=== PATIENT | male | born 1950 | race Caucasian/White ===

== ENCOUNTER → 2020-03-11 | Outpatient (CLI) | payer MEDICARE ==
[~2020-03-11] MED LIST: AGM875T PO; CLIN300C3 PO; METH4TAB PO; TRM50T PO; WARF7.5T; WRF10T PO
--- NOTE | 2020-03-11 12:46 | Diagnostic Imaging Report ---
PROCEDURE: US left lower extremity venous. TECHNIQUE: Multiple real-time grayscale images were obtained over the left lower extremity in various projections. Additional duplex Doppler and color Doppler images were also obtained. INDICATION: Left leg pain. FINDINGS: There is nonocclusive mural thrombus scattered throughout the entire left lower extremity venous system. Again, no occlusive thrombi are present. Calf compression does show augmentation of flow at the popliteal level. Calf veins do appear patent. Saphenous vein is patent. IMPRESSION: Scattered nonocclusive mural thrombus noted throughout the deep venous system of the left lower extremity. Patient does give history of chronic thrombosis of left lower extremity. These findings may very well be chronic. Clinical correlation for change in symptoms. Dictated by: Dictated on workstation # [id number]
--- NOTE | 2020-03-11 12:49 | Diagnostic Imaging Report ---
INDICATION: Left leg pain. FINDINGS: Color Doppler imaging shows normal blood flow throughout the left lower extremity arterial system from the common femoral level distally to the dorsalis pedis and posterior tibial arteries. There are triphasic waveforms throughout. Peak velocities are common femoral 122 cm/s, profundus femoral 91, superficial femoral 110, popliteal 75, dorsalis pedis 79, and posterior tibial 84. IMPRESSION: 1. No hemodynamic changes are demonstrated throughout the entire left lower extremity arterial system. A few mild scattered plaques are noted. Dictated by: Dictated on workstation # [id number]
== END ==
LOC: RAD 11:27
PROVIDERS: ATTEND Nurse Practitioner Family
DX: I82.4Z2 Acute embolism and thrombosis of unspecified deep veins of left distal lower extremity (principal)
CPT/HCPCS: 93926

== ENCOUNTER → 2020-03-12 | Outpatient (CLI) | payer MEDICARE | LOC: WOUNDCARE 08:18 | PROVIDERS: ATTEND Surgery | DX: I87.332 Chronic venous hypertension (idiopathic) with ulcer and inflammation of left lower extremity (principal); L97.222 Non-pressure chronic ulcer of left calf with fat layer exposed; D68.59 Other primary thrombophilia; T65.222A Toxic effect of tobacco cigarettes, intentional self-harm, initial encounter; F17.218 Nicotine dependence, cigarettes, with other nicotine-induced disorders | CPT/HCPCS: 29581; A6253; G0463 ==

== ENCOUNTER → 2020-03-16 | Outpatient (CLI) | payer MEDICARE | LOC: WOUNDCARE 12:28 | PROVIDERS: ATTEND Surgery | DX: I87.332 Chronic venous hypertension (idiopathic) with ulcer and inflammation of left lower extremity (principal); L97.222 Non-pressure chronic ulcer of left calf with fat layer exposed; D68.59 Other primary thrombophilia; T65.222A Toxic effect of tobacco cigarettes, intentional self-harm, initial encounter; I96 Gangrene, not elsewhere classified; F17.218 Nicotine dependence, cigarettes, with other nicotine-induced disorders | CPT/HCPCS: 29581; A6253; G0463 ==

== ENCOUNTER → 2020-03-17 | Outpatient (CLI) | payer MEDICARE | LOC: WOUNDCARE 10:54 | PROVIDERS: ATTEND Surgery | DX: I87.312 Chronic venous hypertension (idiopathic) with ulcer of left lower extremity (principal) | CPT/HCPCS: 99212 ==

== ENCOUNTER → 2020-03-25 | Outpatient (CLI) | payer MEDICARE | LOC: WOUNDCARE 08:15 | PROVIDERS: ATTEND Surgery | DX: I87.332 Chronic venous hypertension (idiopathic) with ulcer and inflammation of left lower extremity (principal); L97.222 Non-pressure chronic ulcer of left calf with fat layer exposed; T65.222A Toxic effect of tobacco cigarettes, intentional self-harm, initial encounter; I96 Gangrene, not elsewhere classified; F17.218 Nicotine dependence, cigarettes, with other nicotine-induced disorders | CPT/HCPCS: 99213 ==

== ENCOUNTER → 2022-01-05 | Outpatient (CLI) | payer MEDICARE ==
--- NOTE | 2022-01-05 10:21 | Diagnostic Imaging Report ---
INDICATION: Shortness of breath. TIME OF EXAM: 9:26 AM No prior studies are available for comparison. FINDINGS: Heart size is normal. Lungs are hyperinflated consistent with COPD. No infiltrates are seen. There is no effusion or pneumothorax. IMPRESSION: COPD. No acute cardiopulmonary process is detected. Dictated by: Dictated on workstation # [id number]
--- NOTE | 2022-01-05 10:33 | Diagnostic Imaging Report ---
INDICATION: R19.03 and R17.210 PROCEDURE: Ultrasound abdomen complete. TECHNIQUE: Multiple real-time grayscale images were obtained of the abdomen in various projections. Liver is normal in size 16 cm. Portal vein is patent and shows normal direction of flow. No discrete liver mass is identified. The gallbladder is without stones or sludge. No wall thickening or biliary duct dilatation is seen. The pancreas unremarkable. Spleen is normal size 11.5 cm. Visualized aorta is nonaneurysmal. IVC is patent. There is significant hydronephrosis involving bilateral kidneys. No calculi are seen. There is no ascites. IMPRESSION: 1. Severe bilateral hydronephrosis. No other significant abnormalities detected. Dictated by: Dictated on workstation # [id number]
== END ==
LOC: RAD 08:37
PROVIDERS: ATTEND Nurse Practitioner Family
DX: N13.30 Unspecified hydronephrosis (principal); J44.9 Chronic obstructive pulmonary disease, unspecified; F17.210 Nicotine dependence, cigarettes, uncomplicated
CPT/HCPCS: 71046; 76700

== ENCOUNTER → 2022-01-06 | Day surgery (SDC) | payer MEDICARE ==
[~2022-01-06] VITALS: Ht 190.5 cm; Wt 93.0 kg
[2022-01-06 17:15] VITALS: BP 138/80
== END | disposition home or self-care (01) ==
LOC: 4THo 16:06
PROVIDERS: ATTEND Nurse Practitioner Family
DX: N32.0 Bladder-neck obstruction (principal)

== ENCOUNTER → 2022-01-06 | Outpatient (CLI) | payer MEDICARE ==
--- NOTE | 2022-01-06 13:31 | Diagnostic Imaging Report ---
PROCEDURE: CT chest, abdomen, and pelvis without contrast. TECHNIQUE: Multiple contiguous axial images were obtained through the chest, abdomen, and pelvis without the use of intravenous contrast. Auto Exposure Controls were utilized during the CT exam to meet ALARA standards for radiation dose reduction. INDICATION: Abdominal mass and urinary urgency. CT CHEST: There is moderately severe centrilobular emphysema throughout the lungs with an upper lobe predominance. There is no evidence of lung mass or focal infiltrate. No pleural or pericardial fluid is identified. There are occasional mildly prominent mediastinal lymph nodes without pathologically enlarged adenopathy. Coronary artery calcifications are noted. IMPRESSION: 1. Moderate centrilobular emphysema without acute abnormality seen in the thorax. CT ABDOMEN PELVIS: Unenhanced images of the liver and spleen reveal no focal abnormality. There is no evidence of gallbladder or pancreatic lesion. Adrenal glands are also unremarkable in appearance. There are nodular structures in the upper retroperitoneum which are difficult to completely assess without contrast but may represent enlarged lymph nodes. Differential considerations include varices. There is moderate to severe bilateral hydronephrosis and hydroureter. There is fluid distention of the small bowel. No definite bowel obstruction is identified. Urinary bladder is markedly distended and extends into the right mid abdomen. There is prostatic enlargement with median lobe of the prostate gland extending into the bladder base. There is apparent femoral to femoral bypass graft which is not fully evaluated on the noncontrasted study. There is mild aortoiliac atherosclerotic calcification. Inferior vena caval filter is noted. IMPRESSION: 1. There is marked urinary bladder distention with bilateral hydronephrosis and hydroureter. This may be on the basis of bladder outlet obstruction given the enlarged protruding nature of the prostate gland at the bladder base. 2. There is possible mild upper abdominal retroperitoneal adenopathy however given lack of additional enlarged lymph nodes, these could represent non-opacified varices. Follow-up study with contrast may be of use. Dictated by: Dictated on workstation # [id number]
== END ==
LOC: RAD 13:00
PROVIDERS: ATTEND Nurse Practitioner Family
DX: R19.03 Right lower quadrant abdominal swelling, mass and lump (principal); J43.9 Emphysema, unspecified; N19 Unspecified kidney failure; Z72.0 Tobacco use
CPT/HCPCS: 71250; 74176

== ENCOUNTER → 2022-05-10 | Outpatient (CLI) | payer MEDICARE ==
--- NOTE | 2022-05-10 11:46 | Diagnostic Imaging Report ---
PROCEDURE: US Renal Bilateral. TECHNIQUE: Multiple real-time grayscale images were obtained over the kidneys in various projections bilaterally. INDICATION: BPH with urinary retention and hydronephrosis. Comparison with CT 01/06/2022. FINDINGS: Right kidney measures 12 x 6.2 x 6 cm. Left kidney measures 12.3 x 5.7 x 5.3 cm. There is moderate severe hydronephrosis bilaterally with thinning of renal cortex. No calculi are seen. Ureters are dilated. Prostate measures 5 x 4 x 2.8 cm. There is a large nodule in the median lobe extending into the bladder. Bilateral ureteral jets are seen though weak. IMPRESSION: 1. There is moderate severe hydronephrosis without significant change in appearance from previous CT scan. 2. Marked enlargement of the prostate with large median lobe extending into the bladder. This also appears unchanged from previous CT scan. Dictated by: Dictated on workstation # [id number]
== END ==
LOC: RAD 08:38
PROVIDERS: ATTEND Internal Medicine Nephrology
DX: N17.9 Acute kidney failure, unspecified (principal); N40.0 Benign prostatic hyperplasia without lower urinary tract symptoms; N13.30 Unspecified hydronephrosis
CPT/HCPCS: 76770

== ENCOUNTER → 2022-12-28 | Outpatient (CLI) | payer MEDICARE ==
--- NOTE | 2022-12-28 16:05 | Diagnostic Imaging Report ---
PROCEDURE: US Renal Bilateral. TECHNIQUE: Multiple real-time grayscale images were obtained over the kidneys in various projections bilaterally. INDICATION: Benign prosthetic hyperplasia. Right kidney measures 11.2 x 6.4 x 6.6 cm and the left kidney measures 11.5 x 5.0 x 5.0 cm. There appears to be significant bilateral hydronephrosis. No calculi are seen. Cortical thickness and echogenicity is normal. Bladder volume is 248 mL. Post void bladder volume is 150 mL. Bilateral ureteral jets are visualized. Prostate gland measures 3.9 x 3.3 x 3.1 cm. IMPRESSION: 1. Significant bilateral hydronephrosis. 2. Large post void residual bladder volume. Dictated by: Dictated on workstation # [id number]
== END ==
LOC: RAD 12:01
PROVIDERS: ATTEND Nurse Practitioner Family
DX: N13.39 Other hydronephrosis (principal); N32.89 Other specified disorders of bladder; N40.1 Benign prostatic hyperplasia with lower urinary tract symptoms
CPT/HCPCS: 76770

== ENCOUNTER 2023-04-28 18:03 | Observation (INO) | payer MEDICARE ==
[~2023-04-28] VITALS: Ht 193 cm; Wt 86.0 kg
[2023-04-28] MEDS ORDERED: Tetanus/Diphtheria/Pertussis (Acell) ADULT Vaccine 0.5 ML IM ONE (18:30)
[2023-04-28 18:34] LABS: BASOPHILS % (AUTO) 0 % (0-10); EOSINOPHILS # (AUTO) 0.1 10^3/uL (0.0-0.3); EOSINOPHILS % (AUTO) 2 % (0-10); HEMATOCRIT 34 % (40-54); HEMOGLOBIN 12.3 g/dL (13.3-17.7); LYMPHOCYTES # (AUTO) 0.6 10^3/uL (1.0-4.0); LYMPHOCYTES % (AUTO) 12 % (12-44); MEAN CORPUSCULAR HEMOGLOBIN 39 pg (25-34); MEAN CORPUSCULAR HGB CONC 37 g/dL (32-36); MEAN CORPUSCULAR VOLUME 105 fL (80-99); MEAN PLATELET VOLUME 9.7 fL (9.0-12.2); MONOCYTES # (AUTO) 0.2 10^3/uL (0.0-1.0); MONOCYTES % (AUTO) 5 % (0-12); NEUTROPHILS # (AUTO) 3.7 10^3/uL (1.8-7.8); NEUTROPHILS % (AUTO) 80 % (42-75); PLATELET COUNT 148 10^3/uL (130-400); WHITE BLOOD COUNT 4.6 10^3/uL (4.3-11.0)
--- NOTE | 2023-04-28 18:36 | ED General ---
General Chief Complaint: Trauma-Non Activation Stated Complaint: DISORIENTED/FELL/DIZZY Source of Information: Patient (LIMITED HISTORIAN), Other (SISTER GIVES SOME INFORMATION) History of Present Illness Date Seen by Provider: Apr 28, 2023 Time Seen by Provider: 18:17 Initial Comments PT ARRIVES VIA POV FROM HOME, NEEDS WHEELCHAIR ON ARRIVAL PT STATES AROUND [id number] TODAY, HE HAD BEEN TO THE STORE, AND GOT HOME AND WAS GETTING OUT OF HIS TRUCK AND FELT LIGHTHEADED AND FELL ONTO CONCRETE, LANDING ON LEFT FOREARM--HAS BRUISING AND SKIN TEAR TO LEFT FOREARM AND ELBOW AREA HE DENIES HITTING HIS HEAD OR HAVING LOSS OF CONSCIOUSNESS PT'S NEIGHBOR WITNESSED IT AND HELPED HIM UP AND CALLED PT'S SISTER ( PT LIVES ALONE) PT REPORTEDLY WAS DISORIENTED AND OFF BALANCE--THOSE SYMPTOMS ARE BETTER, BUT NOT BACK TO NORMAL -DENIES CHEST PAIN -DENIES PALPITATIONS -DENIES SHORTNESS OF BREATH -DENIES HEADACHE -DENIES VISION CHANGES -DENIES PARESTHESIAS OR MOTOR DEFICITS -DENIES NAUSEA/VOMITING PT STATES HE ATE BREAKFAST AND LUNCH, BUT HAS NOT HAD DINNER YET PT STATES HE HAD SURGERY IN 2000 ON HIS LEFT LEG FOR BLOOD CLOTS, HE IS NOT CURRENTLY TAKING ANY ASPIRIN OR BLOOD THINNERS PT STATES THE ONLY MEDICATION HE TAKES IS "FOR MY KIDNEYS OR BLADDER" --HE DOES NOT KNOW THE NAME OF MEDICATION PT DRINKS "A FEW SHOTS" OF HARD LIQUOR EVERY DAY, INCLUDING TODAY HE SMOKES 1 1/2-2 PPD, DENIES DRUG USE LAST TETANUS UNKNOWN PCP: DR. HAMMOND Allergies and Home Medications Allergies Coded Allergies: No Known Drug Allergies (Unverified , 12/29/09) Patient Home Medication List Amoxicillin/Clavulanate K (Augmentin 875-125 Tablet) 1 Tab Tablet, 1 TAB PO BID Prescribed by: ELEANOR GUIDRY on 12/13/10 1600 Clindamycin Hcl (Cleocin Hcl) 300 Mg Capsule, 1 EACH PO QID Prescribed by: ELEANOR GUIDRY on 12/29/09 141 Methylprednisolone (Medrol Dose Pack) 4 Mg/Dose-Pack Tab.ds.pk, 0 PO UD Prescribed by: ELEANOR GUIDRY on 12/29/09 141 Tramadol Hcl (Ultram) 50 Mg Tab, 50 MG PO Q4-6HOURS PRN Prescribed by: ELEANOR GUIDRY on 12/13/10 1600 Warfarin Sod (Coumadin) 7.5 Mg Tablet, DAILY, (Reported) Entered as Reported by: KEKE VALDES on 12/29/09 1100 Warfarin Sod (Coumadin 10 Mg) 10 Mg Tab, 10 MG PO QOD Prescribed by: ELEANOR GUIDRY on 12/29/09 1415 Review of Systems Review of Systems Constitutional: no symptoms reported EENTM: no symptoms reported Respiratory: no symptoms reported Cardiovascular: no symptoms reported Gastrointestinal: no symptoms reported Genitourinary: no symptoms reported Musculoskeletal: see HPI Skin: see HPI Psychiatric/Neurological: See HPI Hematologic/Lymphatic: See HPI Immunological/Allergic: no symptoms reported Physical Exam Vital Signs Vital Signs - First Documented Capillary Refill : Height, Weight, BMI Height: '" Weight: lbs. oz. kg; BMI Method:Stated Progress/Results/Core Measures Suspected Sepsis SIRS Temperature: Pulse: Respiratory Rate: Laboratory Tests 04/28/23 18:27: White Blood Count 4.6 Blood Pressure / Mean: Laboratory Tests 04/28/23 18:27: Creatinine 2.69H, INR Comment 0.9, Platelet Count 148, Total Bilirubin 0.9 Results/Orders Lab Results Laboratory Tests Test 04/28/23 18:27 04/28/23 19:08 04/28/23 19:11 Range/Units White Blood Count 4.6 4.3-11.0 10^3/uL Red Blood Count 3.19 L 4.30-5.52 10^6/uL Hemoglobin 12.3 L 13.3-17.7 g/dL Hematocrit 34 L 40-54 % Mean Corpuscular Volume 105 H 80-99 fL Mean Corpuscular Hemoglobin 39 H 25-34 pg Mean Corpuscular Hemoglobin Concent 37 H 32-36 g/dL Red Cell Distribution Width 13.0 10.0-14.5 % Platelet Count 148 130-400 10^3/uL Mean Platelet Volume 9.7 9.0-12.2 fL Immature Granulocyte % (Auto) 1 % Neutrophils (%) (Auto) 80 H 42-75 % Lymphocytes (%) (Auto) 12 12-44 % Monocytes (%) (Auto) 5 0-12 % Eosinophils (%) (Auto) 2 0-10 % Basophils (%) (Auto) 0 0-10 % Neutrophils # (Auto) 3.7 1.8-7.8 10^3/uL Lymphocytes # (Auto) 0.6 L 1.0-4.0 10^3/uL Monocytes # (Auto) 0.2 0.0-1.0 10^3/uL Eosinophils # (Auto) 0.1 0.0-0.3 10^3/uL Basophils # (Auto) 0.0 0.0-0.1 10^3/uL Immature Granulocyte # (Auto) 0.0 0.0-0.1 10^3/uL Prothrombin Time 12.5 12.2-14.7 SEC INR Comment 0.9 0.8-1.4 Activated Partial Thromboplast Time 26 24-35 SEC Sodium Level 131 L 135-145 MMOL/L Potassium Level 4.2 3.6-5.0 MMOL/L Chloride Level 105 98-107 MMOL/L Carbon Dioxide Level 13 L 21-32 MMOL/L Anion Gap 13 5-14 MMOL/L Blood Urea Nitrogen 34 H 7-18 MG/DL Creatinine 2.69 H 0.60-1.30 MG/DL Estimat Glomerular Filtration Rate 24 BUN/Creatinine Ratio 13 Glucose Level 100 70-105 MG/DL Calcium Level 8.8 8.5-10.1 MG/DL Corrected Calcium 8.7 8.5-10.1 MG/DL Magnesium Level 2.0 1.6-2.4 MG/DL Total Bilirubin 0.9 0.1-1.0 MG/DL Aspartate Amino Transf (AST/SGOT) 46 H 5-34 U/L Alanine Aminotransferase (ALT/SGPT) 46 0-55 U/L Alkaline Phosphatase 53 40-136 U/L Total Creatine Kinase 157 30-200 U/L Creatine Kinase MB 3.6 <6.6 NG/ML Myoglobin 151.2 H 10.0-92.0 NG/ML Troponin I < 0.028 <0.028 NG/ML B-Type Natriuretic Peptide 77.4 <100.0 PG/ML Total Protein 7.5 6.4-8.2 GM/DL Albumin 4.1 3.2-4.5 GM/DL Amylase Level 84 25-125 U/L Lipase 64 8-78 U/L Serum Alcohol 252 H <10 MG/DL Glucometer 104 70-110 MG/DL My Orders Orders - ELEANOR GUIDRY DO Accucheck Stat ONCE (04/28/23 18:24) Ed Iv/Invasive Line Start (04/28/23 18:24) Ekg Tracing (04/28/23 18:) Monitor-Rhythm Ecg Trace Only (04/28/23 18:) Ct Head Wo-R/O Stroke (04/28/23 18:24) Chest 1 View, Ap/Pa Only (04/28/23 18:24) Forearm, Left, 2 Views (04/28/23 18:24) Elbow, Left, 3 Views (04/28/23 18:24) Pelvis 1 To 2 Views (04/28/23 18:24) Alcohol (04/28/23 18:) Cbc And Automated Diff (04/28/23 18:) Comprehensive Metabolic Panel (04/28/23 18) Creatine Kinase (04/28/23 18:) Creatine Kinase Mb (04/28/23 18:) Drug Screen Stat (Urine) (04/28/23 18:) Magnesium (04/28/23 18:24) Protime With Inr (04/28/23 18:24) Partial Thromboplastin Time (04/28/23 18:24) Thyroid Analyzer (04/28/23 18:24) Ua Culture If Indicated (04/28/23 18:24) Myoglobin Serum (04/28/23 18:24) Troponin I Fabián (04/28/23 18:24) Covid 19 Inhouse Test (04/28/23 18:24) Dipht/Pertuss(Acell)/Tet Adult (Dipht/Pe (04/28/23 18:30) Influenza A And B By Pcr (04/28/23 18:24) Amylase (04/28/23 18:24) Bnp Trigg (04/28/23 18:24) Lipase (04/28/23 18:24) Ed Iv/Invasive Line Start (04/28/23 19:11) Lactated Ringers 1,000 Ml (Lactated Ring (04/28/23 19:15) Vital Signs/I&O 04/28/23 04/28/23 18:30 18:30 Temp 36.1 36.1 Pulse 85 85 Resp 16 16 B/P (MAP) 124/74 (91) 124/74 (91) Pulse Ox 97 97 Capillary Refill : Departure Communication (Admissions) 1855--SPOKE WITH DR. AMADOR, HOSPITALIST, ACCEPTS PT FOR ADMIT Impression Primary Impression: Alcohol intoxication in active alcoholic Additional Impressions: Altered mental status associated with intoxication Fall Renal insufficiency Disposition: ADMITTED INPATIENT Condition: Stable Admissions Decision to Admit/Date: Apr 28, 2023 Time/Decision to Admit Time: 18:55 Departure-Patient Inst. Referrals: AMERICA HAMMOND MD (PCP/Family) Primary Care Physician ELEANOR GUIDRY DO Apr 28, 2023 18:36
[2023-04-28 18:49] LABS: ALBUMIN 4.1 GM/DL (3.2-4.5); CHLORIDE 105 MMOL/L (98-107); POTASSIUM 4.2 MMOL/L (3.6-5.0); SODIUM 131 MMOL/L (135-145)
[2023-04-28 18:50] LABS: AMYLASE 84 U/L (25-125); CALCIUM 8.8 MG/DL (8.5-10.1); INR 0.9 (0.8-1.4); PROTHROMBIN TIME PATIENT 12.5 SEC (12.2-14.7)
[2023-04-28 18:51] LABS: GLUCOSE 100 MG/DL (70-105); TOTAL PROTEIN 7.5 GM/DL (6.4-8.2)
[2023-04-28 18:52] LABS: CARBON DIOXIDE 13 MMOL/L (21-32)
[2023-04-28 18:53] LABS: BILIRUBIN,TOTAL 0.9 MG/DL (0.1-1.0)
[2023-04-28 18:55] LABS: ALKALINE PHOSPHATASE 53 U/L (40-136); CREATININE SERUM 2.69 MG/DL (0.60-1.30); GFR ESTIMATED 24
[2023-04-28 18:56] LABS: BUN/CREATININE RATIO 13
[2023-04-28 18:58] LABS: ALANINE AMINOTRANSFERASE 46 U/L (0-55)
[2023-04-28 18:59] LABS: CREATINE KINASE 157 U/L (30-200); LIPASE 64 U/L (8-78)
--- NOTE | 2023-04-28 19:03 | Diagnostic Imaging Report ---
PROCEDURE: CT head wo r/o stroke. TECHNIQUE: Multiple contiguous axial images were obtained through the brain without the use of intravenous contrast. Auto Exposure Controls were utilized during the CT exam to meet ALARA standards for radiation dose reduction. INDICATION: Weakness and dizziness The ventricles are normal in size, shape and position. There are no masses or hemorrhages. There are no extra-axial fluid collections. IMPRESSION: Negative CT head Dictated by: Dictated on workstation # [id number]
[2023-04-28 19:06] LABS: CREATINE KINASE MB 3.6 NG/ML (<6.6)
--- NOTE | 2023-04-28 19:09 | Diagnostic Imaging Report ---
INDICATION: Weakness and dizziness Portable chest 6:39 PM Heart size and pulmonary vascularity are normal. Lungs are clear. There are no effusions or pneumothoraces. IMPRESSION: Negative chest. Dictated by: Dictated on workstation # [id number]
--- NOTE | 2023-04-28 19:10 | Diagnostic Imaging Report ---
INDICATION: Pelvic injury, pain AP view pelvis shows no fracture or dislocation. Hips are intact. IMPRESSION: Negative pelvis. Dictated by: Dictated on workstation # [id number]
--- NOTE | 2023-04-28 19:10 | Diagnostic Imaging Report ---
INDICATION: Left elbow pain 3 views of left elbow show no fracture, dislocation or pathologic effusion. IMPRESSION: Negative left elbow. Dictated by: Dictated on workstation # [id number]
--- NOTE | 2023-04-28 19:10 | Diagnostic Imaging Report ---
INDICATION: Left forearm injury AP and lateral views of left forearm show no fracture or dislocation. IMPRESSION: Negative left forearm. Dictated by: Dictated on workstation # [id number]
[2023-04-28] MEDS ORDERED: LACTATED RINGERS 1,000 ML 1,000 ML IV ONE ×2 (19:15→20:30)
[2023-04-28 19:19] LABS: TSH (THYROID ANALYZER) 1.81 UIU/ML (0.35-4.94)
[2023-04-28 20:22] LABS: BACTERIA,URINE LARGE /HPF; BILIRUBIN,URINE NEGATIVE (NEGATIVE); CLARITY,URINE CLEAR; COLOR,URINE YELLOW; GLUCOSE, URINE (UA) NEGATIVE (NEGATIVE); KETONES,URINE NEGATIVE (NEGATIVE); LEUKOCYTE ESTERASE ,URINE 3+ (NEGATIVE); NITRITE,URINE POSITIVE (NEGATIVE); PROTEIN,URINE NEGATIVE (NEGATIVE); RBC,URINE 0-2 /HPF; WBC,URINE 25-50 /HPF
[2023-04-28 20:23] LABS: AMORPHOUS SEDIMENT,UR LARGE AMOR PHOSPHATE /LPF
[2023-04-28] MEDS ORDERED: CEFEPIME INJECTION 1,000 MG in NS (IVPB) 50 ML 50 ML IV ONE (20:30)
[2023-04-28 20:32] LABS: AMPHETAMINE SCREEN, URINE NEGATIVE (NEGATIVE); BARBITURATE SCREEN URINE NEGATIVE (NEGATIVE); CANNABINOID SCREEN, URINE NEGATIVE (NEGATIVE); COCAINE SCREEN URINE NEGATIVE (NEGATIVE); METHADONE STAT NEGATIVE (NEGATIVE); OPIATE SCREEN URINE NEGATIVE (NEGATIVE); OXYCODONE STAT NEGATIVE (NEGATIVE); PROPOXYPHENE STAT NEGATIVE (NEGATIVE); TRICYCLIC ANTIDEPRESSANTS SCRE NEGATIVE (NEGATIVE)
--- NOTE | 2023-04-28 21:26 | Tele-ICU Consult ---
History of Present Illness History of Present Illness Date Seen by Provider: Apr 28, 2023 Time Seen by Provider: 21:20 History of Present Illness eICU Critical Care Consult 72 yo M felt lightheaded, fell, no LOC, did not hit head, EtOH level 252, troponin normal, Cr 2.69, BUN 34, No old values Hb 12.3, but MCV 105 No CP, SOB, N, V, D Hx of blood clots but not on OAC X rays of chest, elbow, forearm normal CT pelvis, head showed no acute process Allergies and Home Medications Allergies Coded Allergies: No Known Drug Allergies (Unverified , 12/29/09) Home Medications Amoxicillin/Clavulanate K 1 Tab Tablet, 1 TAB PO BID FOR INFECTION Prescribed by: ELEANOR GUIDRY on 12/13/10 1600 Clindamycin Hcl 300 Mg Capsule, 1 EACH PO QID FOR INFECTION Prescribed by: ELEANOR GUIDRY on 12/29/09 141 Methylprednisolone 4 Mg/Dose-Pack Tab.ds.pk, 0 PO UD INFLAMMATION Prescribed by: ELEANOR GUIDRY on 12/29/09 141 Tramadol Hcl 50 Mg Tab, 50 MG PO Q4-6HOURS PRN FOR PAIN Prescribed by: ELEANOR GUIDRY on 12/13/10 1600 Warfarin Sod 7.5 Mg Tablet, DAILY, (Reported) Warfarin Sod 10 Mg Tab, 10 MG PO QOD Prescribed by: ELEANOR GUIDRY on 12/29/09 1415 Past Medical/Social/Family Hx Patient Social History Tobacco Use?: Yes Tobacco type used: Cigarettes Smoking Status: Current Everyday Smoker Substance use?: No Alcohol Use?: Yes Alcohol type: Hard Liquor Alcohol Frequency: Daily Pt stated abuse/neglect: No Current Status Advance Directives: No Primary Language: Uzbek Preferred Spoken Language: Uzbek Review of Systems Constitutional: see HPI EENTM: see HPI Respiratory: see HPI Cardiovascular: see HPI Gastrointestinal: see HPI Genitourinary: see HPI Musculoskeletal: see HPI Skin: see HPI Psychiatric/Neurological: See HPI Focused Exam Height, Weight, BMI Height: '" Weight: lbs. oz. kg; 23.00 BMI Method:Stated Exam Exam Patient acknowledged, consented, and participated in this virtual visit which was conducted using real time audio/video Vital Signs Date Time Temp Pulse Resp B/P (MAP) Pulse Ox O2 Delivery O2 Flow Rate FiO2 04/28/23 18:30 36.1 85 16 124/74 (91) 97 04/28/23 18:30 36.1 85 16 124/74 (91) 97 Height & Weight Height: '" Weight: lbs. oz. kg; 23.00 BMI Method:Stated General Appearance: No Apparent Distress Capillary Refill: Less Than 3 Seconds Results Lab Laboratory Tests 04/28/23 18:27 Assessment/Plan Assessment/Plan EtOH intoxication, dehydration, probable chronic EtOH use, elevated Cr/BUN SAVANNAH vs CKD will hydrate, Spoke with university lecturer: Critically Ill Patient Time spent with patient (mins): 20 ITZEL MCBRIDE MD Apr 28, 2023 21:25
[2023-04-28] MEDS ORDERED: CALCIUM CARBONATE 500 MG CHEW TABLET PO PRN (21:45)
[2023-04-28] MEDS ORDERED: ENOXAPARIN 40 MG/0.4 ML SYRINGE SC SCH (21:45)
[2023-04-28] MEDS ORDERED: MILK OF MAGNESIA 400 MG/5 ML 30 ML UDC PO PRN (21:45)
[2023-04-28] MEDS ORDERED: oxyCODONE IMMEDIATE RELEASE 5 MG TABLET PO PRN (21:45)
[2023-04-28] MEDS ORDERED: DexMEDEtomidine 1,000mcg/250ml 250 ML IV SCH (21:45)
[2023-04-28] MEDS ORDERED: 1/2 NS IV SOLUTION 1000 ML 1,000 ML IV PRN (21:45)
[2023-04-28] MEDS ORDERED: LORazepam 1 MG TABLET PO PRN (21:45)
[2023-04-28] MEDS ORDERED: D5 1/2 NS 1,000 ML IV 1,000 ML IV PRN (21:45)
[2023-04-28] MEDS ORDERED: BISACODYL 10 MG SUPPOSITORY PR PRN (21:45)
[2023-04-28] MEDS ORDERED: LACTULOSE SYRUP 10GM/15ML 30ML UDC PO PRN (21:45)
[2023-04-28] MEDS ORDERED: HYDROmorphone INJECTION 2 MG/ML VIAL IV PRN (21:45)
[2023-04-28] MEDS ORDERED: SENNA W/DOCUSATE TABLET PO PRN (21:45)
[2023-04-28] MEDS ORDERED: diphenhydrAMINE 25 MG TABLET PO PRN (21:45)
[2023-04-28] MEDS ORDERED: ACETAMINOPHEN 325 MG TABLET PO PRN (21:45)
[2023-04-28] MEDS ORDERED: ONDANSETRON INJECTION 4 MG/2 ML (SDV) IV PRN ×2 (21:45)
[2023-04-28] MEDS ORDERED: ANTACID SUSPENSION 30 ML UDC PO PRN ×2 (21:45)
[2023-04-28] MEDS ORDERED: ONDANSETRON 4 MG ORAL DISSOLVE TABLET PO PRN (21:45)
[2023-04-28] MEDS ORDERED: ONDANSETRON 4 MG ORAL DISSOLVE TABLET SL PRN (21:45)
[2023-04-28] MEDS ORDERED: NS IV 500 ML 500 ML IV PRN (21:45)
[2023-04-28] MEDS ORDERED: diphenhydrAMINE INJ 50 MG/ML VIAL IVP PRN (21:45)
[2023-04-28] MEDS ORDERED: MELATONIN 3 MG TABLET PO PRN (21:45)
[2023-04-28 21:57] VITALS: BP 124/74
[2023-04-28] MEDS ORDERED: RT-ALBUTEROL SULF 2.5 MG/3 ML PRE-MIX VIAL INH PRN (22:15)
[2023-04-29] MEDS ORDERED: CEFEPIME INJECTION 1,000 MG in NS (IVPB) 50 ML 50 ML IV SCH (04:30)
[2023-04-29 05:23] LABS: BASOPHILS % (AUTO) 0 % (0-10); EOSINOPHILS % (AUTO) 1 % (0-10); HEMATOCRIT 35 % (40-54); HEMOGLOBIN 12.5 g/dL (13.3-17.7); LYMPHOCYTES # (AUTO) 0.4 10^3/uL (1.0-4.0); LYMPHOCYTES % (AUTO) 8 % (12-44); MEAN CORPUSCULAR HEMOGLOBIN 38 pg (25-34); MEAN CORPUSCULAR HGB CONC 35 g/dL (32-36); MEAN CORPUSCULAR VOLUME 106 fL (80-99); MEAN PLATELET VOLUME 10.1 fL (9.0-12.2); MONOCYTES # (AUTO) 0.3 10^3/uL (0.0-1.0); MONOCYTES % (AUTO) 6 % (0-12); NEUTROPHILS # (AUTO) 3.9 10^3/uL (1.8-7.8); NEUTROPHILS % (AUTO) 85 % (42-75); PLATELET COUNT 136 10^3/uL (130-400); WHITE BLOOD COUNT 4.6 10^3/uL (4.3-11.0)
[2023-04-29 05:37] LABS: ALBUMIN 3.8 GM/DL (3.2-4.5); POTASSIUM 4.5 MMOL/L (3.6-5.0)
[2023-04-29 05:39] LABS: CALCIUM 8.9 MG/DL (8.5-10.1)
[2023-04-29 05:42] LABS: BILIRUBIN,TOTAL 0.6 MG/DL (0.1-1.0)
[2023-04-29 05:43] LABS: CREATININE SERUM 2.63 MG/DL (0.60-1.30); PHOSPHORUS 3.7 MG/DL (2.3-4.7)
[2023-04-29 05:46] LABS: MAGNESIUM 1.8 MG/DL (1.6-2.4)
[2023-04-29] MEDS ORDERED: POTASSIUM CL 10MEQ/50ML IVPB 50 ML IV SCH (06:00)
[2023-04-29] MEDS ORDERED: MAGNESIUM 1 GM/100 ML IVPB 100 ML IV SCH (06:00)
[2023-04-29] MEDS ORDERED: inSUlin ASPART 1 UNIT/0.01 ML (PER UNIT) SC SCH (06:00)
[2023-04-29] MEDS ORDERED: POTASSIUM CHLORIDE 20 MEQ TABLET PO SCH (06:00)
[2023-04-29 06:09] LABS: LYMPHOCYTES % (MANUAL) 8 %; MONOCYTES % (MANUAL) 3 %; NEUTROPHILS % (MANUAL) 88 %; REACTIVE LYMPHOCYTES 1 %
--- NOTE | 2023-04-29 06:22 | History & Physical ---
History of Present Illness HPI/Chief Complaint Chief complaint: Alcohol intoxication with weakness and a fall HPI: This is a 72-year-old male clinic patient of Dr. Horvath with a past medical history of alcoholism who presents after a fall and severe weakness with alcohol intoxication. Patient was admitted to the ICU closely monitor and now he is doing much better. He is not interested in completely ceasing alcohol use. Source: patient Exam Limitations: no limitations Date Seen 04/29/23 Time Seen by a Provider: 09:00 Attending Physician Reema Horvath MD PCP Admitting Physician: Christie Monahan DO Attending Physician: Christie Monahan DO Referring Physician Date of Admission Apr 28, 2023 at 21:12 Home Medications & Allergies Home Medications Reviewed patient Home Medication Reconciliation performed by pharmacy medication reconciliations certified ophthalmic medical technician and/or nursing. Patients Allergies have been reviewed. Allergies Allergies Coded Allergies No Known Drug Allergies (Unverified12/29/09) Past Agnldlr-Wawyai-Rtxjrt Hx Past Med/Social Hx: Reviewed Nursing Past Med/Soc Hx, Reviewed and Corrections made Patient Social History Marrital Status: single Employed/Student: retired Alcohol Use: Regular Use Smoking Status: Current Everyday Smoker Review of Systems Constitutional: see HPI Physical Exam Physical Exam Vital Signs Vital Signs - First Documented 04/28/23 04/29/23 21:10 07:22 O2 Delivery Room Air O2 Flow Rate 0.00 Capillary Refill : Less Than 3 Seconds Height, Weight, BMI Height: '" Weight: lbs. oz. kg; 23.08 BMI Method:Stated General Appearance: No Apparent Distress, Chronically ill Eyes: Bilateral Eye Normal Inspection, Bilateral Eye PERRL HEENT: PERRL/EOMI, Normal ENT Inspection, Pharynx Normal Neck: Full Range of Motion, Normal Inspection, Non Tender, Supple, Carotid Bruit Respiratory: Chest Non Tender, Lungs Clear, Normal Breath Sounds, No Accessory Muscle Use, No Respiratory Distress Cardiovascular: Regular Rate, Rhythm, No Edema, No Gallop, No JVD, No Murmur, Normal Peripheral Pulses Gastrointestinal: Normal Bowel Sounds, No Organomegaly, No Pulsatile Mass, Non Tender, Soft Back: Normal Inspection, No CVA Tenderness, No Vertebral Tenderness Extremity: Normal Capillary Refill, Normal Inspection, Normal Range of Motion, Non Tender, No Calf Tenderness, No Pedal Edema Neurologic/Psychiatric: Alert, Oriented x3, No Motor/Sensory Deficits, Normal Mood/Affect Skin: Normal Color, Warm/Dry Lymphatic: No Adenopathy Results Results/Procedures Labs Laboratory Tests 04/28/23 18:27 04/29/23 04:27 Patient resulted labs reviewed. Assessment/Plan Admission Diagnosis Assessment: Alcohol intoxication Weakness Fall Smoker Plan: Supportive care Monitor closely Discharge home Admission Status: Observation CHRISTIE MONAHAN DO Apr 29, 2023 06:22
[2023-04-29] MEDS ORDERED: THERAPEUTIC MULTIVITAMIN W/MINERALS TABLET PO SCH (07:00)
[2023-04-29] MEDS ORDERED: THIAMINE 100 MG (VITAMIN B-1) TAB PO SCH (07:00)
--- NOTE | 2023-04-29 07:34 | Diagnostic Imaging Report ---
INDICATION: Chest pain after fall. COMPARISON: 04/28/2023. DISCUSSION: Single portable upright view of the chest was obtained. Lungs remain hyperinflated. Normal heart size. No consolidation, pleural fluid, or pneumothorax. No osseous abnormality. IMPRESSION: 1. Negative chest. Dictated by: Dictated on workstation # [id number]
[2023-04-29] MEDS ORDERED: THIAMINE INJECTION 100 MG, FOLIC ACID INJECTION 1 MG, MAGNESIUM SULFATE 2 GM, MULTIVITA... IV SCH ×5 (09:00)
[2023-04-29] MEDS ORDERED: DOCUSATE SODIUM 100 MG CAPSULE PO SCH (09:00)
[2023-04-29] MEDS ORDERED: SENNOSIDES 8.6 MG TABLET PO SCH (09:00)
[2023-04-29] MEDS ORDERED: MULT-1136 PO (09:44)
--- NOTE | 2023-04-29 09:45 | Discharge Summary ---
Diagnosis/Chief Complaint Date of Admission Apr 28, 2023 at 21:12 Date of Discharge Discharge Date: Apr 29, 2023 Discharge Diagnosis Alcohol intoxication Fall Smoker Weakness Discharge Summary Discharge Physical Examination Allergies: Coded Allergies: No Known Drug Allergies (Unverified , 12/29/09) Vitals & I&Os Vital Signs Date Time Temp Pulse Resp B/P (MAP) Pulse Ox O2 Delivery O2 Flow Rate FiO2 04/29/23 09:00 105 19 165/89 (122) 99 Room Air 04/29/23 07:30 0.00 04/29/23 04:00 36.4 Hospital Course Was the Problem List Reviewed?: Yes Short course overnight after he was admitted following alcohol intoxication with fall and weakness. Patient was monitored closely due to the severity of his intoxication. Alcohol cessation counseled. Smoking cessation counseled. He w as discharged in improved condition. Labs (last 24 hrs) Laboratory Tests 04/28/23 18:27: White Blood Count 4.6, Red Blood Count 3.19L, Hemoglobin 12.3L, Hematocrit 34L, Mean Corpuscular Volume 105H, Mean Corpuscular Hemoglobin 39H, Mean Corpuscular Hemoglobin Concent 37H, Red Cell Distribution Width 13.0, Platelet Count 148, Mean Platelet Volume 9.7, Immature Granulocyte % (Auto) 1, Neutrophils (%) (Auto) 80H, Lymphocytes (%) (Auto) 12, Monocytes (%) (Auto) 5, Eosinophils (%) (Auto) 2, Basophils (%) (Auto) 0, Neutrophils # (Auto) 3.7, Lymphocytes # (Auto) 0.6L, Monocytes # (Auto) 0.2, Eosinophils # (Auto) 0.1, Basophils # (Auto) 0.0, Immature Granulocyte # (Auto) 0.0, Prothrombin Time 12.5, INR Comment 0.9, Activated Partial Thromboplast Time 26, Sodium Level 131L, Potassium Level 4.2, Chloride Level 105, Carbon Dioxide Level 13L, Anion Gap 13, Blood Urea Nitrogen 34H, Creatinine 2.69H, Estimat Glomerular Filtration Rate 24, BUN/Creatinine Ratio 13, Glucose Level 100, Calcium Level 8.8, Corrected Calcium 8.7, Magnesium Level 2.0, Total Bilirubin 0.9, Aspartate Amino Transf (AST/SGOT) 46H, Alanine Aminotransferase (ALT/SGPT) 46, Alkaline Phosphatase 53, Total Creatine Kinase 157, Creatine Kinase MB 3.6, Myoglobin 151.2H, Troponin I < 0.028, B-Type Natriuretic Peptide 77.4, Total Protein 7.5, Albumin 4.1, Amylase Level 84, Lipase 64, TSH Cochran Testing 1.81, Serum Alcohol 252H 04/28/23 19:08: Influenza Type A (RT-PCR) Not Detected, Influenza Type B (RT-PCR) Not Detected, SARS-CoV-2 RNA (RT-PCR) Not Detected 04/28/23 19:11: Glucometer 104 04/28/23 20:04: Urine Color YELLOW, Urine Clarity CLEAR, Urine pH 7.0, Urine Specific [place] 1.015L, Urine Protein NEGATIVE, Urine Glucose (UA) NEGATIVE, Urine Ketones NEGATIVE, Urine Nitrite POSITIVEH, Urine Bilirubin NEGATIVE, Urine Urobilinogen 0.2, Urine Leukocyte Esterase 3+H, Urine RBC (Auto) 1+H, Urine RBC 0-2, Urine WBC 25-50H, Urine Squamous Epithelial Cells NONE, Urine Crystals PRESENTH, Urine Amorphous Sediment LARGE HAILEY PHOSPHATEH, Urine Bacteria LARGEH, Urine Casts NONE, Urine Mucus NEGATIVE, Urine Culture Indicated YES, Urine Opiates Screen NEGATIVE, Urine Oxycodone Screen NEGATIVE, Urine Methadone Screen NEGATIVE, Urine Propoxyphene Screen NEGATIVE, Urine Barbiturates Screen NEGATIVE, Ur Tricyclic Antidepressants Screen NEGATIVE, Urine Phencyclidine Screen NEGATIVE, Urine Amphetamines Screen NEGATIVE, Urine Methamphetamines Screen NEGATIVE, Urine Benzodiazepines Screen NEGATIVE, Urine Cocaine Screen NEGATIVE, Urine Cannabinoids Screen NEGATIVE 04/29/23 04:27: White Blood Count 4.6, Red Blood Count 3.33L, Hemoglobin 12.5L, Hematocrit 35L, Mean Corpuscular Volume 106H, Mean Corpuscular Hemoglobin 38H, Mean Corpuscular Hemoglobin Concent 35, Red Cell Distribution Width 13.2, Platelet Count 136, Mean Platelet Volume 10.1, Immature Granulocyte % (Auto) 1, Neutrophils (%) (Auto) 85H, Lymphocytes (%) (Auto) 8L, Monocytes (%) (Auto) 6, Eosinophils (%) (Auto) 1, Basophils (%) (Auto) 0, Neutrophils # (Auto) 3.9, Lymphocytes # (Auto) 0.4L, Monocytes # (Auto) 0.3, Eosinophils # (Auto) 0.0, Basophils # (Auto) 0.0, Immature Granulocyte # (Auto) 0.0, Neutrophils % (Manual) 88, Lymphocytes % (Manual) 8, Monocytes % (Manual) 3, Reactive Lymphocytes 1, Macrocytosis SLIGHT, Sodium Level 136, Potassium Level 4.5, Chloride Level 110H, Carbon Dioxide Level 15L, Anion Gap 11, Blood Urea Nitrogen 34H, Creatinine 2.63H, Estimat Glomerular Filtration Rate 25, BUN/Creatinine Ratio 13, Glucose Level 82, Calcium Level 8.9, Corrected Calcium 9.1, Phosphorus Level 3.7, Magnesium Level 1.8, Total Bilirubin 0.6, Aspartate Amino Transf (AST/SGOT) 42H, Alanine Aminotransferase (ALT/SGPT) 41, Alkaline Phosphatase 53, Total Protein 7.0, Albumin 3.8 Microbiology 04/28/23 Urine Culture - Preliminary, Resulted Proteus,Morganella,Providencia Pending Labs Microbiology Date/Time Source Procedure Growth Status 04/28/23 20:04 Urine Clean Catch Urine Culture - Preliminary Proteus,Morganella,Providencia Resulted Laboratory Tests 04/28/23 18:27: White Blood Count 4.6, Red Blood Count 3.19, Hemoglobin 12.3, Hematocrit 34, Mean Corpuscular Volume 105, Mean Corpuscular Hemoglobin 39, Mean Corpuscular Hemoglobin Concent 37, Red Cell Distribution Width 13.0, Platelet Count 148, Mean Platelet Volume 9.7, Immature Granulocyte % (Auto) 1, Neutrophils (%) (Auto) 80, Lymphocytes (%) (Auto) 12, Monocytes (%) (Auto) 5, Eosinophils (%) (Auto) 2, Basophils (%) (Auto) 0, Neutrophils # (Auto) 3.7, Lymphocytes # (Auto) 0.6, Monocytes # (Auto) 0.2, Eosinophils # (Auto) 0.1, Basophils # (Auto) 0.0, Immature Granulocyte # (Auto) 0.0, Prothrombin Time 12.5, INR Comment 0.9, Activated Partial Thromboplast Time 26, Sodium Level 131, Potassium Level 4.2, Chloride Level 105, Carbon Dioxide Level 13, Anion Gap 13, Blood Urea Nitrogen 34, Creatinine 2.69, Estimat Glomerular Filtration Rate 24, BUN/Creatinine Ratio 13, Glucose Level 100, Calcium Level 8.8, Corrected Calcium 8.7, Magnesium Level 2.0, Total Bilirubin 0.9, Aspartate Amino Transf (AST/SGOT) 46, Alanine Aminotransferase (ALT/SGPT) 46, Alkaline Phosphatase 53, Total Creatine Kinase 157, Creatine Kinase MB 3.6, Myoglobin 151.2, Troponin I < 0.028, B-Type Natriur etic Peptide 77.4, Total Protein 7.5, Albumin 4.1, Amylase Level 84, Lipase 64, TSH Cochran Testing 1.81, Serum Alcohol 252 04/28/23 19:08: Influenza Type A (RT-PCR) Not Detected, Influenza Type B (RT-PCR) Not Detected, SARS-CoV-2 RNA (RT-PCR) Not Detected 04/28/23 19:11: Glucometer 104 04/28/23 20:04: Urine Color YELLOW, Urine Clarity CLEAR, Urine pH 7.0, Urine Specific [place] 1.015, Urine Protein NEGATIVE, Urine Glucose (UA) NEGATIVE, Urine Ketones NEGATIVE, Urine Nitrite POSITIVE, Urine Bilirubin NEGATIVE, Urine Urobilinogen 0.2, Urine Leukocyte Esterase 3+, Urine RBC (Auto) 1+, Urine RBC 0-2, Urine WBC 25-50, Urine Squamous Epithelial Cells NONE, Urine Crystals PRESENT, Urine Amorphous Sediment LARGE [place] PHOSPHATE, Urine Bacteria LARGE, Urine Casts NONE, Urine Mucus NEGATIVE, Urine Culture Indicated YES, Urine Opiates Screen NEGATIVE, Urine Oxycodone Screen NEGATIVE, Urine Methadone Screen NEGATIVE, Urine Propoxyphene Screen NEGATIVE, Urine Barbiturates Screen NEGATIVE, Ur Tricyclic Antidepressants Screen NEGATIVE, Urine Phencyclidine Screen NEGATIVE, Urine Amphetamines Screen NEGATIVE, Urine Methamphetamines Screen NEGATIVE, Urine Benzodiazepines Screen NEGATIVE, Urine Cocaine Screen NEGATIVE, Urine Cannabinoids Screen NEGATIVE 04/29/23 04:27: White Blood Count 4.6, Red Blood Count 3.33, Hemoglobin 12.5, Hematocrit 35, Mean Corpuscular Volume 106, Mean Corpuscular Hemoglobin 38, Mean Corpuscular Hemoglobin Concent 35, Red Cell Distribution Width 13.2, Platelet Count 136, Mean Platelet Volume 10.1, Immature Granulocyte % (Auto) 1, Neutrophils (%) (Auto) 85, Lymphocytes (%) (Auto) 8, Monocytes (%) (Auto) 6, Eosinophils (%) (Auto) 1, Basophils (%) (Auto) 0, Neutrophils # (Auto) 3.9, Lymphocytes # (Auto) 0.4, Monocytes # (Auto) 0.3, Eosinophils # (Auto) 0.0, Basophils # (Auto) 0.0, Immature Granulocyte # (Auto) 0.0, Neutrophils % (Manual) 88, Lymphocytes % (Manual) 8, Monocytes % (Manual) 3, Reactive Lymphocytes 1, Macrocytosis SLIGHT, Sodium Level 136, Potassium Level 4.5, Chloride Level 110, Carbon Dioxide Level 15, Anion Gap 11, Blood Urea Nitrogen 34, Creatinine 2.63, Estimat Glomerular Filtration Rate 25, BUN/Creatinine Ratio 13, Glucose Level 82, Calcium Level 8.9, Corrected Calcium 9.1, Phosphorus Level 3.7, Magnesium Level 1.8, Total Bilirubin 0.6, Aspartate Amino Transf (AST/SGOT) 42, Alanine Aminotransferase (ALT/SGPT) 41, Alkaline Phosphatase 53, Total Protein 7.0, Albumin 3.8 Discharge Home Medications: Active Scripts Active Multivitamin 1 Each Tablet 1 Each PO DAILY 365 Days Instructions to patient/family Please see electronic discharge instructions given to patient. WANDA AMADOR DO Apr 29, 2023 09:45
[2023-05-02] MEDS ORDERED: THERAPEUTIC MULTIVITAMIN W/MINERALS TABLET PO SCH (07:00)
[2023-05-02] MEDS ORDERED: THIAMINE 100 MG (VITAMIN B-1) TAB PO SCH (07:00)
[2023-05-02] MEDS ORDERED: FOLIC ACID 1 MG TAB PO SCH (09:00)
[2023-05-02] MEDS ORDERED: MAGNESIUM OXIDE 400 MG TABLET PO SCH (09:00)
== END 2023-04-29 09:42 | disposition home or self-care (01) ==
LOC: EDUNIT# 18:03 → ER 18:07 → ICU 21:12 → UNDOADMOB 21:12 → ICU 21:45 → UNDODISOB 04-29 10:57
PROVIDERS: ADMIT Internal Medicine; ATTEND Internal Medicine
DX: R53.1 Weakness (principal); N28.9 Disorder of kidney and ureter, unspecified; F10.129 Alcohol abuse with intoxication, unspecified; F17.210 Nicotine dependence, cigarettes, uncomplicated; Y90.9 Presence of alcohol in blood, level not specified
CPT/HCPCS: 70450; 71045 ×2; 72170; 73080; 73090; 80053 ×2; 80306; 81000; 82150; 82550; 82553; 82947; 83690; 83735 ×2; 83874; 83880; 84100; 84443; 84484; 85007; 85025; 85027; 85610; 85730; 87077; 87081; 87088; 87186; 87636; 90471; 93005; 93041; 94640; 96361; 96365; 96366; 96372; 96375; 99284; G0378; G0480; 36415; 80320